=== PATIENT | male | born 1990 | race Two or more races ===

== ENCOUNTER 2018-08-03 13:59 | Emergency (ER) | payer SELFPAY ==
--- NOTE | 2018-08-03 15:03 | ER Document Report ---
ED Medical Screen (RME) - General Mode of Arrival: Ambulatory Information source: Patient <HUEY SPEAR - Last Filed: 08/03/18 18:47> - General TRAVEL OUTSIDE OF THE [place] IN LAST 30 DAYS: No <DAVID CARDENAS - Last Filed: 08/03/18 20:41> - General Chief Complaint: Finger Injury Stated Complaint: HAND LACERATION Time Seen by Provider: 08/03/18 14:56 Notes: Patient is a 28-year-old male that presents to the emergency department for chief complaint of right thumb injury. Patient reports that he crushed his thumb on a rock at work today, he has pain, and it feels slightly numb, he injured the nail as well, he reports he is up-to-date with his tetanus. ROS: Unless otherwise stated in this report the patient's positive and negative responses for review of systems for constitutional, eyes, ENT, cardiovascular, respiratory, gastrointestinal, neurological, genitourinary, musculoskeletal, and integumentary systems and related systems to the presenting problem are either as stated in the HPI or were not pertinent or were negative for the symptoms and/or complaints related to the presenting medical problem. PHYSICAL EXAMINATION: Vital signs reviewed. GENERAL: Well-appearing, well-nourished and in no acute distress. HEAD: Atraumatic, normocephalic. EYES: Pupils equal round extraocular movements intact, conjunctiva are normal. ENT: Nares patent NECK: Normal range of motion CV: Heart regular rate and rhythm LUNGS: No respiratory distress Musculoskeletal: Right thumb has a fractured nail, with palmar superficial laceration as well, from crush injury, tender to palpate, cap refill less than 3 seconds, sensation is intact distally in the thumb, no other fingers appear to be involved NEUROLOGICAL: Normal speech PSYCH: Normal mood, normal affect. MDM: Patient seen and examined for rapid initial assessment. Vital signs reviewed. A comprehensive ED assessment and evaluation of the patient, analysis of test results and completion of the medical decision making process will be conducted by additional ED providers. *Note is created using voice recognition software and may contain spelling, syntax or grammatical errors. (DAVID CARDENAS) - Related Data Allergies/Adverse Reactions: No Known Allergies Allergy (Verified 08/03/18 14:06) Past Medical History - Social History Chew tobacco use (# tins/day): No Frequency of alcohol use: None Drug Abuse: None Renal/ Medical History: Denies: Hx Peritoneal Dialysis - Immunizations Immunizations up to date: Yes Hx Diphtheria, Pertussis, Tetanus Vaccination: Yes <DAVID CARDENAS - Last Filed: 08/03/18 20:41> - Vital signs Vitals: Temp Pulse Resp BP Pulse Ox 97.6 F 88 18 128/68 H 98 08/03/18 19:13 08/03/18 19:13 08/03/18 19:13 08/03/18 19:13 08/03/18 19:13 - Vital Signs Vital signs: Temp Pulse Resp BP Pulse Ox 97.6 F 88 18 128/68 H 98 08/03/18 19:13 08/03/18 19:13 08/03/18 19:13 08/03/18 19:13 08/03/18 19:13 Procedures - Laceration/Wound Repair Right Thumb Time completed: 18:57 Wound length (cm): 0 Wound's Depth, Shape: Superficial, Nail-avulsed Laceration pre-procedure: Sterile PPE donned, Sterile drapes applied, Shur- Clens applied Anesthetic type: 1% Lidocaine Volume Anesthetic (mLs): 6 Wound Debrided: Moderate Wound Repaired With: Sutures Suture Size/Type: 4:0, Prolene Layer Closure?: No Post-procedure wound care: Sterile dressing applied, Splint applied Post-procedure NV exam normal: Yes Complications: Yes <HUEY SPEAR - Last Filed: 08/03/18 18:47> <DAVID CARDENAS - Last Filed: 08/03/18 20:41> - Laceration/Wound Repair Right Thumb Notes: 08/03/18 18:58 There was no laceration on patient's right thumb. This was a crush injury that push the nail out from underneath the cuticle and the skin and performed a subungual hematoma and a blowout crush type thing on the pad of the thumb that was just thick skin there was no laceration there. I used 3 sutures to close or hold the nail onto the nailbed. No other closure was done. (HUEY SPEAR) Doctor's Discharge <HUEY SPEAR - Last Filed: 08/03/18 18:47> <DAVID CARDENAS - Last Filed: 08/03/18 20:41> - Discharge Clinical Impression: Avulsion of nail Crushing injury of thumb, right Qualifiers: Encounter type: initial encounter Qualified Code(s): S67.01XA - Crushing injury of right thumb, initial encounter Subungual hematoma of fingernail Qualifiers: Encounter type: initial encounter Qualified Code(s): S60.10XA - Contusion of unspecified finger with damage to nail, initial encounter Condition: Stable Disposition: HOME, SELF-CARE Instructions: Avulsed Nail ([facility]), Crush Injury ([facility]), Subungual Hematoma ([facility]) Additional Instructions: Home today rest. Medication as prescribed. As of indicated you you do have a tuft fracture of the end of your thumb on the right hand. This is just a small piece of bone chipped off the very tip of the end. There is nothing for surgical to do for this. But it will hurt. We are going to place you on antibiotics to give you a little pain medication change the dressing on use antibiotic ointment at least twice a day for the first 3 days and then once a day for from then on out. Return to ER in about 8-10 days for suture removal. Return sooner if you have any concerns or problems. Use the splint for the next 3-4 days just to protect the end of the finger. As I have informed you you could lose the entire nail is difficult for me to tell at this time. I was able to talk the nail back up under the skin and I sutured it in place if it takes that will be good. We will see you back here in 8-10 days if you have no other problems. Prescriptions: Cephalexin Monohydrate [Keflex 500 mg Capsule] 500 mg PO Q6H 7 Days #28 capsule Hydrocodone/Acetaminophen [[place] 7.5-325 mg Tablet] 1 tab PO Q4 PRN #12 tablet PRN Reason: Ibuprofen 800 mg PO TID #30 tablet Forms: Smoking Cessation Education
--- NOTE | 2018-08-03 15:40 | RADIOLOGY REPORT (SQ) ---
EXAM DESCRIPTION: FINGER RIGHT COMPLETED DATE/TIME: 08/03/2018 3:21 pm REASON FOR STUDY: right thumb injury, fractured nail COMPARISON: None. NUMBER OF VIEWS: Three views. TECHNIQUE: AP, lateral, and oblique images acquired of the right thumb. LIMITATIONS: None. FINDINGS: MINERALIZATION: Normal. BONES: Minimally displaced fracture of the tuft. SOFT TISSUES: Dorsal soft tissue injury. No foreign body. OTHER: No other significant finding. IMPRESSION: MINIMALLY DISPLACED FRACTURE OF THE TUFT. DORSAL SOFT TISSUE INJURY. COMMENT: SITE OF TRAUMA/COMPLAINT MARKED/STAMP COMPLETED: YES. TECHNICAL DOCUMENTATION: JOB ID: [id number] [employer]- All Rights Reserved Reading location - IP/workstation name: [email or web address]
[2018-08-03] MEDS ORDERED: LIDOCAINE 1% INJ-PF (10 MG/ML) 30 ML SDV INJ ONE (17:47)
[2018-08-03] MEDS ORDERED: OXYCODONE-ACETAMINOPHEN 5-325 MG TABLET PO ONE (17:48)
[2018-08-03 19:15] VITALS: BP 128/68
--- NOTE | 2018-08-06 08:07 | ER Document Report ---
ED Hand/Wrist Injury - General Chief Complaint: Finger Injury Stated Complaint: HAND LACERATION Time Seen by Provider: 08/03/18 14:56 Mode of Arrival: Ambulatory Information source: Patient Notes: Patient is a 28-year-old male comes to emergency room with complaint of right thumb injury. 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 Patient states that he believes his nail has been dislocated and he has a laceration. Denies any other injuries. TRAVEL OUTSIDE OF THE [place] IN LAST 30 DAYS: No - HPI Injury to: Thumb Onset: Just prior to arrival Where: Work Timing: Constant Quality of pain: Sharp, Throbbing Severity: Moderate Pain Level: 3 - Related Data Allergies/Adverse Reactions: No Known Allergies Allergy (Verified 08/03/18 14:06) Past Medical History - Social History Smoking Status: Never Smoker Cigarette use (# per day): No Chew tobacco use (# tins/day): No Smoking Education Provided: No Frequency of alcohol use: None Drug Abuse: None Family History: None, Reviewed & Not Pertinent Patient has suicidal ideation: No Patient has homicidal ideation: No Renal/ Medical History: Denies: Hx Peritoneal Dialysis - Immunizations Immunizations up to date: Yes Hx Diphtheria, Pertussis, Tetanus Vaccination: Yes Review of Systems - Review of Systems Constitutional: No symptoms reported EENT: No symptoms reported Cardiovascular: No symptoms reported Respiratory: No symptoms reported Gastrointestinal: No symptoms reported Genitourinary: No symptoms reported Male Genitourinary: No symptoms reported Musculoskeletal: Joint pain, Muscle pain Skin: Other - Crush injury Hematologic/Lymphatic: No symptoms reported Neurological/Psychological: No symptoms reported -: Yes All other systems reviewed and negative Physical Exam - Vital signs Vitals: Temp Pulse Resp BP Pulse Ox 97.6 F 88 18 128/68 H 98 08/03/18 19:13 08/03/18 19:13 08/03/18 19:13 08/03/18 19:13 08/03/18 19:13 Interpretation: Normal - Notes Notes: PHYSICAL EXAMINATION: GENERAL: Well-appearing, well-nourished and in no acute distress. HEAD: Atraumatic, normocephalic. EYES: Pupils equal round and reactive to light, extraocular movements intact, sclera anicteric, conjunctiva are normal. ENT: Nares patent, oropharynx clear without exudates. Moist mucous membranes. NECK: Normal range of motion, supple without lymphadenopathy LUNGS: Breath sounds clear to auscultation bilaterally and equal. No wheezes rales or rhonchi. HEART: Regular rate and rhythm without murmurs ABDOMEN: Soft, nontender, nondistended abdomen. No guarding, no rebound. No masses appreciated. Musculoskeletal: Examination of patient's right thumb shows that he has a crush injury to it. The injury sustained is from the base of the nail up. The nail has been dislodged from the cuticle and the skin area below it and is sticking up out. There is also noted a subungual hematoma to the right thumb nail. On the palm side of the pad side of the thumb from the crush injury is a type of plate blowout abrasion there is no laceration underneath it but that the thick skin has caused separation at different spots along the pad. There is nothing to repair on this. The patient has full range of motion with this thumb he has good flexion and extension and opposition. He has also good cap refill in the nail bed of the thumb. Although the subungual hematoma appears to be taking up a lot of large space. The crush injury caused the cuticle portion of the thumb skin to be pushed up to the middle of the nail. There is a line of skin that runs across the top of the nail. NEUROLOGICAL: Cranial nerves grossly intact. Normal speech, normal gait. Normal sensory, motor exams PSYCH: Normal mood, normal affect. SKIN: Warm, Dry, normal turgor, no rashes or lesions noted. With the exception of the thumb which is described above rest the patient's skin is normal. Course - Re-evaluation Re-evalutation: 08/06/18 08:07 I informed patient that likely he may lose his whole entire nail. Even though I did a subungual release by using the cautery and a large amount of blood was dispensed from underneath the nail bed itself and then packing the nail up back up under the cuticle and the skin area and passing it with 3 sutures to keep it from coming back out. There is a 50-50 chance he will lose his entire nail. I left the nail in place for infection reasons. And patient understands this. I did apply a splint to the area to protect it. When when I was finished the nail looked intact and normal. Patient had feeling in the distal end of his finger or nail of the thumb. - Vital Signs Vital signs: Temp Pulse Resp BP Pulse Ox 97.6 F 88 18 128/68 H 98 08/03/18 19:13 08/03/18 19:13 08/03/18 19:13 08/03/18 19:13 08/03/18 19:13 Procedures - Nail Trephanation/Removal Right Thumb Betadine prep applied: Yes Method of Drainage: Nail cauterized, Other - Release of a large amount of bright red blood emerged after the initial cauterization hole was opened Sterile Dressing Applied: Yes Finger Splint: Yes Notes: 08/06/18 08:09 I originally was able to take the cuticle skin that was running across mid nail and with a scalpel shave it down and take it off. I then talked to the nail at the base back up under the skin and the cuticle area faceted in with 3 sutures which were simple interrupted going through the nail itself and pulling underneath the base of the nail and pulled it under the skin at the cuticle area. When finished the nail was back in its original anatomic position and appeared to be fastened well. There was no laceration to any of the thumb area that needed repair. Discharge - Discharge Clinical Impression: Avulsion of nail Crushing injury of thumb, right Qualifiers: Encounter type: initial encounter Qualified Code(s): S67.01XA - Crushing injury of right thumb, initial encounter Subungual hematoma of fingernail Qualifiers: Encounter type: initial encounter Qualified Code(s): S60.10XA - Contusion of unspecified finger with damage to nail, initial encounter Condition: Stable Disposition: HOME, SELF-CARE Instructions: Avulsed Nail ([facility]), Crush Injury ([facility]), Subungual Hematoma ([facility]) Additional Instructions: Home today rest. Medication as prescribed. As of indicated you you do have a tuft fracture of the end of your thumb on the right hand. This is just a small piece of bone chipped off the very tip of the end. There is nothing for surgical to do for this. But it will hurt. We are going to place you on antibiotics to give you a little pain medication change the dressing on use antibiotic ointment at least twice a day for the first 3 days and then once a day for from then on out. Return to ER in about 8-10 days for suture removal. Return sooner if you have any concerns or problems. Use the splint for the next 3-4 days just to protect the end of the finger. As I have informed you you could lose the entire nail is difficult for me to tell at this time. I was able to talk the nail back up under the skin and I sutured it in place if it takes that will be good. We will see you back here in 8-10 days if you have no other problems. Prescriptions: Cephalexin Monohydrate [Keflex 500 mg Capsule] 500 mg PO Q6H 7 Days #28 capsule Hydrocodone/Acetaminophen [[place] 7.5-325 mg Tablet] 1 tab PO Q4 PRN #12 tablet PRN Reason: Ibuprofen 800 mg PO TID #30 tablet Forms: Smoking Cessation Education
== END 2018-08-03 19:13 | disposition home or self-care (01) ==
LOC: ER 13:59
PROC: 0HQQXZZ Repair Finger Nail, External Approach (ICD-10-PCS; principal; 2018-08-03)
DX: S67.01XA Crushing injury of right thumb, initial encounter (principal); S60.10XA Contusion of unspecified finger with damage to nail, initial encounter; S61.101A Unspecified open wound of right thumb with damage to nail, initial encounter; W23.1XXA Caught, crushed, jammed, or pinched between stationary objects, initial encounter; Y93.H3 Activity, building and construction; Y99.0 Civilian activity done for income or pay
CPT/HCPCS: 99283; 73140; 11760; J3490